=== PATIENT | male | born 1955 | race Two or more races ===

== ENCOUNTER 2022-12-21 22:38 | Inpatient (IN) | payer OTHER, MEDICAID ==
[~2022-12-21] VITALS: Ht 170.2 cm; Wt 83.7 kg
[~2022-12-21 22:38] MED LIST: ASPI-543 PO; ATOR40TA52 PO; CLOP75TA28 PO; FENO145T27 PO; LISI10TA34 PO; MECL1TAB32 PO; METF-371 PO; SITA50TA PO
[2022-12-21 23:28] VITALS: PULSE 107; RESP 18; O2SAT 96
[2022-12-21 23:29] LABS: Basophils # (auto) 0 10 ^3/uL (0-0.2); Basophils % (auto) 0.2 % (0.0-2.0); Eosinophils # (auto) 0 10 ^3/uL (0-0.8); Eosinophils % (auto) 0.3 % (0.0-7.0); Hematocrit 43.1 % (41.0-53.0); Hemoglobin 14.1 g/dL (13.5-17.5); Lymphocytes # (auto) 0.7 10 ^3/uL (0.4-5.4); Lymphocytes % (auto) 5.5 % (10.0-50.0); Mean Corpuscular Hemoglobin 28.9 pg (28.0-32.0); Mean Corpuscular Hgb Conc. 32.8 g/dL (32.0-36.0); Mean Corpuscular Volume 88.2 fL (80.0-100.0); Monocytes # (auto) 0.9 10 ^3/uL (0-1.3); Monocytes % (auto) 7.3 % (0.0-12.0); Neutrophils # (auto) 11.1 10 ^3/uL (1.6-8.6); Neutrophils % (auto) 86.7 % (37.0-80.0); Nucleated Red Blood Cells % 0.1 %; Red Blood Cells 4.88 10^6/uL (4.5-5.90); Red Cell Distribution Width 16.5 % (11.8-14.3); White Blood Cell 12.8 10^3/uL (4.4-10.8)
[2022-12-21 23:46] LABS: Alanine Aminotransferase 16 U/L (7-40); Albumin 4.1 g/dL (3.2-4.8); Alkaline Phosphatase 84 U/L (46-116); Anion Gap 5.8 (5-15); Aspartate Aminotransferase 16 U/L (13-40); BUN/Creatinine Ratio 14.7 (10.0-20.0); Bilirubin, Total 0.8 mg/dL (0.2-1.0); Blood Urea Nitrogen 19 mg/dL (9-23); Calcium 9.2 mg/dL (8.7-10.4); Carbon Dioxide 25.2 mmol/L (20-30); Chloride 102 mmol/L (98-107); Glucose 106 mg/dL (74-106); INR 1.04 (0.9-1.15); Magnesium 1.9 mg/dL (1.6-2.6); Partial Thromboplastin Time 29.3 SEC (24.5-34.5); Potassium 3.9 mmol/L (3.5-5.1); Prothrombin Time 10.9 sec (9.3-11.8); Sodium 133 mmol/L (136-145); Total Protein 7.3 g/dL (5.7-8.2)
[2022-12-22] MEDS ORDERED: cefTRIAXone 1GM/50ML D5W 50 ML IV ONE (01:30)
[2022-12-22] MEDS ORDERED: SODIUM CHLORIDE 0.9% 1,000 ML IV ONE (01:30)
[2022-12-22] MEDS ORDERED: ACETAMINOPHEN 325 MG TAB PO ONE (02:00)
[2022-12-22 02:45] LABS: COVID19 ANTIGEN SOFIA FIA NEGATIVE (NEGATIVE); Rapid Influenza A Negative (Negative); Rapid Influenza B Negative (Negative)
[2022-12-22 03:48] LABS: Urine Bacteria FEW /hpf (None Seen); Urine Blood Negative /uL (Negative); Urine Clarity Clear (Clear); Urine Color Colorless (Yellow); Urine Protein, UAD TRACE (Negative); Urine Specific Gravity 1.008 (1.001-1.035); Urine Sperm PRESENT /hpf (None Seen); Urine Urobilinogen Normal (Negative); Urine WBC 1 /hpf (0 - 3)
[2022-12-22 07:52] VITALS: PULSE 83; RESP 13; O2SAT 97
[2022-12-22] MEDS ORDERED: DOCUSATE SOD 100 MG CAP PO PRN (09:30)
[2022-12-22] MEDS ORDERED: ALBUTEROL SULF 2.5 MG/0.5ML(0.5%) NEB SOLN NEB PRN (09:30)
[2022-12-22] MEDS ORDERED: IPRATROPIUM BROM 0.5 MG/2.5ML INH SOL NEB PRN (09:30)
[2022-12-22] MEDS ORDERED: MORPHINE SULFATE INJ 2 MG/ml SYRG IV PRN (09:30)
[2022-12-22] MEDS ORDERED: NITROGLYCERIN 0.4 MG SL TAB SL PRN (09:30)
[2022-12-22] MEDS ORDERED: ACETAMINOPHEN 325 MG TAB PO PRN (09:30)
[2022-12-22] MEDS ORDERED: ONDANSETRON HCL 4 MG/2 ML VIAL IV PRN (09:30)
[2022-12-22] MEDS ORDERED: EMPA1TAB PO (10:05)
[2022-12-22] MEDS ORDERED: GABA-1250 PO (10:05)
[2022-12-22] MEDS ORDERED: MEMA28CA15 PO (10:05)
[2022-12-22] MEDS ORDERED: LISI-275 PO (10:05)
[2022-12-22] MEDS ORDERED: RIVA1CAP3 PO (10:05)
[2022-12-22] MEDS ORDERED: DEXTROSE (50%) 50ML SYRG IV PRN (10:30)
[2022-12-22] MEDS: AZITHROMYCIN 500MG/ 250ML 250 ML IV SCH (10:43)
[2022-12-22] MEDS: INSULIN LANTUS (GLARGINE) 1 /0.01ml (100units/ml) SC SCH ×2 (10:48→23:01)
[2022-12-22] MEDS: ASPirin-EC 81 mg tab PO SCH (11:38)
[2022-12-22] MEDS: CLOPIDOGREL BISULFATE 75 MG TAB PO SCH (11:38)
[2022-12-22] MEDS: ACCU-CHEK COMFORT CURVE STRIP VI SCH ×3 (11:38→23:00)
[2022-12-22] MEDS: InsuLIN REG 1unit/0.01ml Soln (100units/ml) SC SCH ×3 (11:40→23:03)
[2022-12-22 14:37] VITALS: BP 103/57; PULSE 72; RESP 20; O2SAT 99
[2022-12-22] MEDS: SODIUM CHLOR 0.9% PF (SALINE LOCK) 10ML VIAL/SYR IV SCH ×2 (14:42→23:04)
[2022-12-22] MEDS: GABAPENTIN 300 MG CAP PO SCH ×2 (14:42→23:03)
[2022-12-22 18:06] VITALS: PULSE 68; RESP 16; O2SAT 97
[2022-12-22 19:30] VITALS: PULSE 77; RESP 15; O2SAT 98
[2022-12-22] MEDS: RIVASTIGMINE TARTRATE 3 MG PO SCH (22:00)
[2022-12-22] MEDS: ATORVASTATIN 20 MG TAB PO SCH (23:03)
[2022-12-23] VITALS (12 sets, daily range): BP systolic 93–144; BP diastolic 47–69; PULSE 63–73; RESP 15–20; TEMP 97.5–98.4; O2SAT 96–100
[2022-12-23] MEDS: GABAPENTIN 300 MG CAP PO SCH ×3 (06:13→22:20)
[2022-12-23] MEDS: ACCU-CHEK COMFORT CURVE STRIP VI SCH ×4 (06:15→22:22)
[2022-12-23] MEDS: InsuLIN REG 1unit/0.01ml Soln (100units/ml) SC SCH ×4 (06:16→22:27)
[2022-12-23] MEDS: SODIUM CHLOR 0.9% PF (SALINE LOCK) 10ML VIAL/SYR IV SCH ×3 (06:17→22:21)
[2022-12-23 07:13] LABS: Alanine Aminotransferase 10 U/L (7-40); Albumin 3.5 g/dL (3.2-4.8); Alkaline Phosphatase 65 U/L (46-116); Anion Gap 4.5 (5-15); Aspartate Aminotransferase 11 U/L (13-40); BUN/Creatinine Ratio 16.7 (10.0-20.0); Blood Urea Nitrogen 19 mg/dL (9-23); Calcium 8.9 mg/dL (8.5-10.1); Carbon Dioxide 26.5 mmol/L (20-30); Chloride 109 mmol/L (98-107); Glucose 93 mg/dL (74-106); Potassium 3.8 mmol/L (3.5-5.1); Sodium 140 mmol/L (136-145)
[2022-12-23 07:14] LABS: Bilirubin, Total 0.8 mg/dL (0.2-1.0); Total Protein 6.4 g/dL (5.7-8.2)
[2022-12-23 07:27] LABS: Basophils # (auto) 0 10 ^3/uL (0-0.2); Basophils % (auto) 0.1 % (0.0-2.0); Eosinophils # (auto) 0.3 10 ^3/uL (0-0.8); Hematocrit 38.5 % (41.0-53.0); Hemoglobin 12.6 g/dL (13.5-17.5); Lymphocytes # (auto) 2.3 10 ^3/uL (0.4-5.4); Lymphocytes % (auto) 17.8 % (10.0-50.0); Mean Corpuscular Hemoglobin 28.7 pg (28.0-32.0); Mean Corpuscular Hgb Conc. 32.8 g/dL (32.0-36.0); Mean Corpuscular Volume 87.5 fL (80.0-100.0); Monocytes # (auto) 1.3 10 ^3/uL (0-1.3); Monocytes % (auto) 9.8 % (0.0-12.0); Neutrophils # (auto) 9.1 10 ^3/uL (1.6-8.6); Neutrophils % (auto) 70.3 % (37.0-80.0); Nucleated Red Blood Cells % 0.2 %; Red Cell Distribution Width 16.8 % (11.8-14.3); White Blood Cell 12.9 10^3/uL (4.4-10.8)
[2022-12-23] MEDS: MEMANTINE HCL 28 MG PO SCH (10:00)
[2022-12-23] MEDS: RIVASTIGMINE TARTRATE 3 MG PO SCH ×2 (10:00→22:00)
[2022-12-23] MEDS: AZITHROMYCIN 500MG/ 250ML 250 ML IV SCH (10:06)
[2022-12-23] MEDS: ASPirin-EC 81 mg tab PO SCH (10:07)
[2022-12-23] MEDS: LISINOPRIL 5 MG TAB PO SCH (10:07)
[2022-12-23] MEDS: CLOPIDOGREL BISULFATE 75 MG TAB PO SCH (10:07)
[2022-12-23] MEDS: cefTRIAXone 1GM/50ML D5W 50 ML IV SCH (10:07)
[2022-12-23] MEDS: EMPAGLIFLOZIN 10 MG TAB PO SCH (10:08)
[2022-12-23] MEDS: INSULIN LANTUS (GLARGINE) 1 /0.01ml (100units/ml) SC SCH ×2 (10:20→22:29)
[2022-12-23] MEDS: ATORVASTATIN 20 MG TAB PO SCH (22:21)
[2022-12-24] VITALS (11 sets, daily range): BP systolic 97–160; BP diastolic 47–77; PULSE 69–93; RESP 16–19; TEMP 97.2–98.3; O2SAT 95–98
[2022-12-24] MEDS: SODIUM CHLOR 0.9% PF (SALINE LOCK) 10ML VIAL/SYR IV SCH ×3 (06:00→21:39)
[2022-12-24] MEDS: InsuLIN REG 1unit/0.01ml Soln (100units/ml) SC SCH ×3 (07:00→21:46)
[2022-12-24] MEDS: ACCU-CHEK COMFORT CURVE STRIP VI SCH ×3 (07:25→21:38)
[2022-12-24] MEDS: GABAPENTIN 300 MG CAP PO SCH ×3 (07:28→21:38)
[2022-12-24] MEDS: ASPirin-EC 81 mg tab PO SCH (09:44)
[2022-12-24] MEDS: CLOPIDOGREL BISULFATE 75 MG TAB PO SCH (09:44)
[2022-12-24] MEDS: cefTRIAXone 1GM/50ML D5W 50 ML IV SCH (09:45)
[2022-12-24] MEDS: EMPAGLIFLOZIN 10 MG TAB PO SCH (09:54)
[2022-12-24] MEDS: AZITHROMYCIN 500MG/ 250ML 250 ML IV SCH (09:55)
[2022-12-24] MEDS: MEMANTINE HCL 28 MG PO SCH (10:00)
[2022-12-24] MEDS: RIVASTIGMINE TARTRATE 3 MG PO SCH ×2 (10:00→21:39)
[2022-12-24] MEDS: LISINOPRIL 5 MG TAB PO SCH (10:00)
[2022-12-24] MEDS: INSULIN LANTUS (GLARGINE) 1 /0.01ml (100units/ml) SC SCH ×2 (10:22→21:47)
[2022-12-24] MEDS: ATORVASTATIN 20 MG TAB PO SCH (21:38)
[2022-12-25] VITALS (7 sets, daily range): BP systolic 117–119; BP diastolic 54–58; PULSE 71–83; RESP 18–20; TEMP 36.6; O2SAT 94–96
[2022-12-25] MEDS: InsuLIN REG 1unit/0.01ml Soln (100units/ml) SC SCH ×2 (06:11→11:39)
[2022-12-25] MEDS: GABAPENTIN 300 MG CAP PO SCH (06:11)
[2022-12-25] MEDS: ACCU-CHEK COMFORT CURVE STRIP VI SCH ×2 (06:12→11:37)
[2022-12-25] MEDS: SODIUM CHLOR 0.9% PF (SALINE LOCK) 10ML VIAL/SYR IV SCH (06:12)
[2022-12-25] MEDS: ASPirin-EC 81 mg tab PO SCH (09:47)
[2022-12-25] MEDS: AZITHROMYCIN 500MG/ 250ML 250 ML IV SCH (09:47)
[2022-12-25] MEDS: CLOPIDOGREL BISULFATE 75 MG TAB PO SCH (09:47)
[2022-12-25] MEDS: cefTRIAXone 1GM/50ML D5W 50 ML IV SCH (09:47)
[2022-12-25] MEDS: LISINOPRIL 5 MG TAB PO SCH (09:48)
[2022-12-25] MEDS: EMPAGLIFLOZIN 10 MG TAB PO SCH (09:49)
[2022-12-25] MEDS: INSULIN LANTUS (GLARGINE) 1 /0.01ml (100units/ml) SC SCH (09:50)
[2022-12-25] MEDS: RIVASTIGMINE TARTRATE 3 MG PO SCH (09:53)
[2022-12-25] MEDS: MEMANTINE HCL 28 MG PO SCH (09:53)
[2022-12-25] MEDS ORDERED: ALBUAER3 IN (10:13)
[2022-12-25] MEDS ORDERED: AZIT500T66 PO (10:13)
[2022-12-25] MEDS ORDERED: METH4PAK PO (10:13)
== END 2022-12-25 13:30 | disposition home or self-care (01) | DRG 871 ==
LOC: EDUNIT# 22:38 → ER 22:38 → EDBD 22:38 → TELE 12-22 10:05 → TELE-WESTW 12-22 22:46
PROVIDERS: ADMIT Nurse Practitioner Family; ATTEND Family Medicine
DX: A41.9 Sepsis, unspecified organism (principal); J18.1 Lobar pneumonia, unspecified organism; I69.351 Hemiplegia and hemiparesis following cerebral infarction affecting right dominant side; R41.82 Altered mental status, unspecified; E78.5 Hyperlipidemia, unspecified; Z20.822 Contact with and (suspected) exposure to COVID-19; I10 Essential (primary) hypertension; G93.0 Cerebral cysts; F03.90 Unspecified dementia, unspecified severity, without behavioral disturbance, psychotic disturbance, mood disturbance, and anxiety; I25.10 Atherosclerotic heart disease of native coronary artery without angina pectoris; E11.42 Type 2 diabetes mellitus with diabetic polyneuropathy; Z89.421 Acquired absence of other right toe(s); Z90.49 Acquired absence of other specified parts of digestive tract; Z79.4 Long term (current) use of insulin
CPT/HCPCS: 36415; 70450; 71045; 71250; 74176; 80053; 81001; 82962; 83735; 83880; 84484; 85025; 85379; 85610; 85730; 87040; 87086; 87426; 87804; 93005; G0378; J0696; J1815